=== PATIENT | female | born 2000 | race Caucasian/White ===

== ENCOUNTER 2023-07-06 21:51 | Outpatient (REF) | payer BC, SELFPAY ==
[2023-07-12 10:17] LABS: Age Gdln ACOG Testing Note (.); IGP, rfx Aptima HPV ASCU Note (.)
--- OUTSIDE RECORDS SUMMARY | 2023-07-20 02:20 | XMS_ITS | CCD ---
Author Name Unknown Address [address] [facility] [address] [place] [id number] Organization [facility] Care Team Providers Care Forming Process Worker Name Role Phone GURINDER, DR EMMY Gamino Primary Care Unavailable ABRAM, DR ERNESTO Angel Attending Unavailable YANNICKEBCHRISTINA, DR HOME Zazueta Consulting Unavailable NADEREMarbin, DR ERNESTO Angel Admitting Unavailable NADEREMarbin, DR ERNESTO Angel Consulting Unavailable KARASIK, DR CHRISTENSEN Attending Unavailable KARASILucretia, DR CHRISTENSEN Consulting Unavailable GURINDER, DR EMMY Gamino Primary Care Unavailable ENRIQUE, DR CHRISTENSEN Admitting Unavailable Emmy Robbins Unavailable EVERETT ALVAREZ Attending Unavailable Allergies Allergy Classification Reported Allergen(s) Allergy Type Date of Onset Reaction(s) Facility (1 source) Licorice Drug Allergy 07-23-20 15 [facility] (1 source) NSAIDs Drug allergy (disorder) 07-27-20 13 [facility] (1 source) Penicillins Drug allergy (disorder) 07-27-20 13 [facility] (1 source) Sulfonamides (Antibiotic) Drug allergy (disorder) 07-27-20 13 [facility] (4 sources) Ibuprofen Drug Allergy Unknown [facility] Other (3 sources) Penicillin Drug Allergy Unknown [facility] Other (3 sources) Substance with sulfonamide structure and antibacterial mechanism of action (substance) Drug allergy Unknown [facility] Other (3 sources) Licorice Flavor Drug allergy Unknown [facility] Other (1 source) Ibuprofen Drug Allergy 07-31-20 13 Unknown [facility] Other (1 source) Pseudoephedrine Drug Allergy 07-31-20 13 Unknown [facility] Other (1 source) Sulfamethoxazole / Trimethoprim Drug Allergy 07-31-20 13 Unknown [facility] Other (1 source) Allergies Reconciled Propensity to adverse reactions Unknown [facility] Other (1 source) Substance with penicillin structure and antibacterial mechanism of action (substance) Drug allergy Unknown [facility] Other (1 source) Licorice (Glycyrrhiza glabra) *ALTERNATIVE MEDICIN Propensity to adverse reactions 07-31-20 13 Unknown [facility] Other (1 source) patient allergy list reviewed by nurse or physicia Propensity to adverse reactions 01-16-20 Comment:Done [facility] Other Medications Current Medications Medication Drug Class(es) Dates Sig (Normalized) Sig (Original) 120 actuat budesonide 0.18 mg/actuat dry powder inhaler (2 sources) Corticosteroid Start: 11-06-2022 take 1 puff(s) by inhalation twice daily Pulmicort Flexhaler 180 MCG/ACT 1 puff Inhalation Twice a day for 90 days Oct, Active cetirizine hydrochloride 10 mg oral tablet (3 sources) Histamine-1 Receptor Antagonist take 1 tablet by mouth once daily Cetirizine HCl 10 MG TAKE 1 TABLET BY MOUTH EVERY DAY for 90 Active 120 actuat fluticasone propionate 0.11 mg/actuat metered dose inhaler (1 source) Corticosteroid take 2 puff(s) by inhalation twice daily Flovent HFA 110 MCG/ACT 2 puffs Inhalation Twice a day for 30 days Active phentermine hydrochloride 37.5 mg oral tablet (3 sources) Sympathomimetic Amine Anorectic Start: 12-31-2022 take 1 tablet by mouth once daily before breakfast Adipex-P 37.5 MG 1 tablet before breakfast Orally Once a day for 30 days Dec, Active Start: 12-01-2022 take 1 tablet by mikala th once daily before breakfast Adipex-P 37.5 MG 1 tablet before breakfast Orally Once a day for 30 days November, Active sertraline 25 mg oral tablet (3 sources) Serotonin Reuptake Inhibitor Start: 11-05-2022 take 1 tablet by mouth once daily Sertraline HCl 25 MG 1 tablet Orally Once a day for 90 days Oct, Active Problems Active Problems Problem Classification Problem Date Documented Date Episodic/Chronic Anxiety disorders (4 sources) Mixed anxiety and depressive disorder; Translations: [Anxiety disorder, unspecified] Chronic Asthma (5 sources) Uncomplicated moderate persistent asthma; Translations: [Moderate persistent asthma, uncomplicated] Onset: 07-31-2013 Chronic Contraceptive and procreative management (2 sources) Surveillance of contraception; Translations: [Encounter for surveillance of contraceptives, unspecified] Resolved: 05-30-2019 Episodic Fracture of lower limb (2 sources) Stress fracture, right foot, subsequent encounter for fracture with routine healing; Translations: [Stress fracture of metatarsal bone] Episodic Immunizations and screening for infectious disease (3 sources) Encounter for screening for human papillomavirus (HPV); Translations: [Sexually transmitted infectious disease] Onset: 06-03-2022 Resolved: 05-30-2019 Episodic Menstrual disorders (1 source) Irregular periods; Translations: [Irregular menstruation, unspecified] Chronic Other connective tissue disease (1 source) Pain in right foot; Translations: [Pain in right foot] Episodic Other non-traumatic joint disorders (1 source) Instability of joint of right ankle; Translations: [Other instability, right ankle] Episodic Other nutritional; endocrine; and metabolic disorders (7 sources) Body mass index 30+ - obesity; Translations: [Body mass index (BMI) 39.0-39.9, adult] Onset: 01-15-2019 Resolved: 05-30-2019 Chronic Other nutritional; endocrine; and metabolic disorders (4 sources) Obesity; Translations: [Other obesity due to excess calories] Chronic Other nutritional; endocrine; and metabolic disorders (1 source) Other obesity due to excess calories Chronic Other nutritional; endocrine; and metabolic disorders (1 source) Body mass index (BMI) 38.0-38.9, adult Chronic Other nutritional; endocrine; and metabolic disorders (1 source) Obesity, unspecified Chronic Other nutritional; endocrine; and metabolic disorders (2 sources) Obese class II; Translations: [Body mass index (BMI) 37.0-37.9, adult] Chronic Other screening for suspected conditions (not mental disorders or infectious disease) (4 sources) Encounter for screening for malignant neoplasm of cervix; Translations: [ENC SCREENING MALIG NEOPLASM CERV] Onset: 06-01-2022 Episodic Other upper respiratory disease (1 source) Allergic rhinitis; Translations: [Allergic rhinitis, unspecified] Onset: 07-31-2013 Chronic Urinary tract infections (1 source) Urinary tract infectious disease; Translations: [Urinary tract infection, site not specified] Episodic Past or Other Problems Problem Classification Problem Date Documented Da te Episodic/Chronic Allergic reactions (1 source) Contact dermatitis; Translations: [Contact dermatitis and other eczema, due to unspecified cause] Onset: 08-18-2015 Resolved: 05-30-2019 Episodic Headache; including migraine (1 source) Headache; Translations: [Headache, unspecified] Onset: 11-08-2013 Episodic Nonmalignant breast conditions (1 source) Hypertrophy of breast; Translations: [Hypertrophy of breast] Onset: 11-01-2014 Episodic Other non-traumatic joint disorders (1 source) Arthralgia of the lower leg; Translations: [Pain in joint, lower leg] Onset: 11-01-2014 Resolved: 05-30-2019 Episodic Other nutritional; endocrine; and metabolic disorders (1 source) Abnormal weight gain; Translations: [Abnormal weight gain] Resolved: 05-30-2019 Episodic Other skin disorders (1 source) Hidradenitis suppurativa; Translations: [Hidradenitis suppurativa] Onset: 08-12-2014 Episodic Sprains and strains (4 sources) Sprain of unspecified ligament of right ankle, initial encounter; Translations: [SPRAIN UNS LIGAMENT RT ANKLE INIT] Onset: 12-16-2021 Episodic Syncope (1 source) Syncope and collapse; Translations: [Syncope and collapse] Onset: 07-31-2013 Episodic Results Test Name Value Interpretation Reference Range Facil ity PAP ACOG PANEL 2: 21 to 29on 06-09-2022 . . Normal [facility] Comment on above: Performed By: #### [id number] #### [facility] [address] [address] [address] Juan A Swenson Age Gdln ACOG Testing - Normal [facility] Comment on above: Performed By: #### [id number] #### [facility] [address] [address] [address] Juan A Swenson DIAGNOSIS: Comment Normal [facility] Comment on above: Result Comment: NEGA TIVE FOR INTRAEPITHELIAL LESION OR MALIGNANCY. Performed By: #### [id number] #### [facility] [address] [place] [address] Dr. Juan A Swenson Methodology: Comment [facility] Comment on above: Result Comment: This liquid based ThinPrep(R) pap test was screened with the use of an image guided system. Performed By: #### [id number] #### [facility] [address] [place] [address] Dr. Juan A Swenson Note: Comment Normal [facility] Comment on above: Result Comment: The Pap smear is a screening test designed to aid in the detection of premalignant and malignant conditions of the uterine cervix. It is not a diagnostic procedure and should not be used as the sole means of detecting cervical cancer. Both false-positive and false-negative reports do occur. . Performed By: #### [id number] #### [facility] [address] [place] [address] Dr. Juan A Swenson Performed by: Comment Normal [facility] Comment on above: Result Comment: Nathaly éMndez, Gun Sealing Machine Operator Performed By: #### [id number] #### [facility] [address] [place] [address] Dr. Juan A Swenson Reflex Criteria: Comment Normal [facility] Comment on above: Result Comment: The HPV DNA reflex criteria were not met with this specimen result therefore, no HPV testing was performed. . Performed By: #### [id number] #### [facility] [address] [place] [address] Dr. Juan A Swenson Specimen adequacy: Comment Normal [facility] Comment on above: Result Comment: Sati sfactory for evaluation. Endocervical and/or squamous metaplastic cells (endocervical component) are present. Performed By: #### [id number] #### [facility] [address] [place] [address] Dr. Juan A Swenson Vital Signs Date Time Vital Sign Value Performing Clinician Diamond rae 12-31-2022 09:45-0400 Body height 162.56 cm Emmy Robbins Other [facility] Other 12-31-2022 09:45-0400 Body mass index (BMI) [Ratio] 37.07 kg/m2 Emmy Robbins Other [facility] Other 12-31-2022 09:45-0400 Body weight 97.98 kg Emmy Robbins Other [facility] Other 12-01-2022 10:45-0400 Body height 162.56 cm Emmy Robbins Other [facility] Other 12-01-2022 10:45-0400 Body mass index (BMI) [Ratio] 38.1 kg/m2 Emmy Robbins Other [facility] Other 12-01-2022 10:45-0400 Body weight 100.7 kg Emmy Robbins Other [facility] Other Encounters Encounter Date Encounter Type Care Provider Facility Start: 07-06-2023 End: 07-06-2023 ambulatory EVERETT ALVAREZ Not Available Start: 07-04-2023 End: 07-04-2023 ambulatory Emmy Robbins Other [facility] Other Start: 07-04-2023 Telephone encounter Emmy Robbins [facility] Start: 12-31-2022 (Televisit) Televisit Emmy Ivory [facility] Start: 12-31-2022 End: 12-31-2022 ambulatory Emmy Robbins Other [facility] Other Start: 12-01-2022 (Televisit) Televisit Emmy Ivory [facility] Start: 12-01-2022 End: 12-01-2022 ambulatory Emmy Robbins Other [facility] Other Start: 06-01-2022 End: 06-01-[address] AMPARO NUNEZ Facility:[facility] Start: 12-16-2021 End: 12-17-[address] EMMY ROBBINS Facility:[facility] Start: 11-09-2021 Gynecological examin ation normal Emmy Robbins Other [facility] Other Start: 11-09-2021 Patient encounter procedure Emmy Robbins Other [facility] Other Start: 05-30-2019 End: 05-30-2019 Well child visit Emmy Robbins Other [facility] Other Procedures Date Procedure Procedure Detail Performing Clinician Start: 08-08-2018 End: 05-30-2019 General examination of patient Emmy Gurinder Other Contraception care education Emmy Robbins Other School admission med ical examination Emmy Robbins Other Immunizations Immunization Date Immunization Notes Care Provider Fa cili 05-18-2021 influenza virus vacc ine, split virus (incl. purified surface antigen) Emmy Robbins Other [facility] Other 02-11-2021 hepatitis B vaccine, pediatric or pediatric/adolescent dosage Emmy Robbins Other [facility] Other 09-11-2020 hepatitis B vaccine, pediatric or pediatric/adolescent dosage Emmy Robbins Other [facility] Other 09-11-2020 varicella virus vaccine Ernesto Robbins Other [facility] Other 08-07-2020 hepatitis B vaccine, pediatric or pediatric/adolescent dosage Emmy Robbins Other [facility] Other 08-07-2020 varicella virus vaccine Ernesto Robbins Other [facility] Other 03-09-2018 meningococcal oligosaccharide (groups A, C, Y and W-135) diphtheria toxoid conjugate vaccine (MCV4O) Emmy Robbins Other [facility] Other 01-28-2016 human papilloma viru s vaccine, quadrivalent Emmy Robbins Other [facility] Other 07-23-2015 human papilloma viru s vaccine, quadrivalent Emmy Robbins Other [facility] Other Payers Date Payer Category Payer [facility] [[email or web address]] [id number] 2019 Unknown [id number] 2000 Unknown [id number] 2000 Unknown [id number] 2000 Unknown [id number] [facility] [[email or web address]] [id number] Social History Date Type Detail Facility Sex Assigned At [facility] Other Evaluation note 07-04-2023 Note Date & Type Note Facility 07-04-2023 Evaluation note Encounter Date Diagnosis Assessment Notes Jul, Moderate persistent asthma without complication (ICD-10 - J45.40) [facility] Other Evaluation note 12-31-2022 Note Date & Type Note Facility 12-31-2022 Evaluation note Encounter Date Diagnosis Assessment Notes Dec, Class 2 obesity with body mass index (BMI) of 35 to 39.9 without comorbidity (ICD-10 - E66.9) Patient has clearly made a good barbie effort for several months on her own to lose weight with little success. Pt to start Adipex daily. Medication is a stimulant. May cause you to be jittery or constipated. Take in the morning, may also take stool softener daily as needed. Continue to eat a healthy well balanced diet and continue work-out regimine. Pt aware that this is not a cure for obesity but a tool used to help them during their weight loss plateau. Pt aware that they need to continue to work hard at weight loss or the weight will be regained. Side effects discussed and understood. Pt education printed and discussed. Pt notified of prescribing schedule with 30 day dispensing, no refills. Discussed the change in recommendations of continuing treatment if desired. Id SOB, CP, mood changes, tachycardia, HTN, headaches, blurred vision occur, go to ER and Follow-up with [facility] Other Evaluation note 12-01-2022 Note Date & Type Note Facility 12-01-2022 Evaluation note Encounter Date Diagnosis Assessment Notes November, Other obesity due to excess calories (ICD-10 - E66.09) Patient has clearly made a good barbie effort for several months on her own to lose weight with little success. Pt to continue Adipex daily for third month. Medication is a stimulant. May cause you to be jittery or constipated. Take in the morning, may also take stool softener daily as needed. Continue to eat a healthy well balanced diet and continue work-up regimine. Pt aware that this is not a cure for obesity but a tool used to help them during their weight loss plateau. Pt aware that they need to continue to work hard at weight loss or the weight will be regained. Side effects discussed and understood. Any onset of SOB, CP, mood changes, tachycardia, HTN, headaches, blurred vision occur, go to ER and Follow-up with our office immediately. November, Body mass index [BMI] 38.0-38.9, adult (ICD-10 - Z68.38) [facility] Other Clinical Note 12-16-2021 Note Date & Type Note Facility 12-16-2021 Note PROCEDURE: XR ANKLE RT MIN 3 VIEWS HISTORY: Sprain of right ankle ; acute right ankle pain after falling COMPARISON: XR foot right 06/04/2020 FINDINGS: BONES:Subtle cortical irregularity at the tip of the lateral malleolus without visible fragment. SOFT TISSUES:Lateral soft tissue swelling. EFFUSION:None visible. OTHER: Negative. IMPRESSION: 1. Lateral swelling suggesting soft tissue injury. Electronically authenticated by: HOME LOCKE Date: 2021-12-16 12:54 [facility] History general Narrative - Reported Note Date & Type Note Facility History general Narrative - Reported Type Medical History Moderate persistent asthma witho ut complication Medical History Obesity due to excess calories Medical History BMI 39.0-39.9,adult Medical History Anxiety disorder, unspecified [facility] Other History general Narrative - Reported Note Date & Type Note Facility History general Narrative - Reported Type Medical History Moderate persistent asthma without complication Medical History Obesity due to excess calories Medical History BMI 39.0-39.9,adult Medical History Anxiety disorder, unspecified Surgical History Problem Title : Appe ndectomy, Problem Status : Active, Attribute Title : [Insert Date into Details], Surgical History Problem Title : None , Problem Status : Inactive, Surgical History Problem Title : past surgical history reviewed, Problem Description : past surgical history reviewed, Problem Comment : reviewed - no changes required, Problem Status : Active, Surgical History Problem Title : surg ical procedures, hx of, Problem Description : surgical procedures, hx of, Problem Comment : none, Problem Status : Active, Surgical History Problem Title : surg ical procedures, hx of, Problem Description : surgical procedures, hx of, Problem Comment : lap appy 11/2017 - [place], Problem Status : Active, [facility] Other Summary Purpose Family History No Family History Records FoundNo Family History Records Found Advance Directives No Advanced Directives Records FoundNo Advanced Directives Records Found Additional Source Comments INFORMATION SOURCE (unrecogn ized section and content) DATE CREATED AUTHOR 06/10/2022 [facility] DATE CREATED AUTHOR AUTHOR'S ORGANIZ ATION 07/08/2023 [facility] EPIC REASON FOR VISIT (unrecogniz ed section and content) medication refilladipexmessa ge FOR RECORDS PERTAINING TO PATIENTS WHO ARE OR HAVE BEEN ENROLLED IN A CHEMICAL DEPENDENCY/SUBSTANCEABUSE PROGRAM, SOME INFORMATION MAY BE OMITTED. This clinical summary was aggregated from multiple sources. Caution should be exercised in using it in the provision of clinical care. This summary normalizes information from multiple sources, and as a consequence, information in this document may materially change the coding, format and clinical context of patient data. In addition, data may be omitted in some cases. CLINICAL DECISIONS SHOULD BE BASED ON THE PRIMARY CLINICAL RECORDS. [facility] provides no warranty or guarantee of the accuracy or completeness of information in this document.
== END 2023-07-06 21:52 | disposition home or self-care (01) ==
LOC: LAB 21:51
PROVIDERS: Visit Provider Physician Assistant
DX: Z01.419 Encounter for gynecological examination (general) (routine) without abnormal findings (principal)
CPT/HCPCS: G0145